=== PATIENT | female | born 1935 | race Caucasian/White ===

== ENCOUNTER → 2016-12-30 | Outpatient (CLI) | payer MEDICARE, BC ==
[~2016-12-30] MED LIST: ALPRAZOLAM0.25 M1 PO; AMOXICILLIN 50500 MG PO; ASPIR-LOX325 MG PO; ASPIRIN 32325 MG/TAB PO; ASPIRIN 81M81 MG/TA2 PO; ATIVAN0.5 MG PO; ATOXIMETIN-B1 CAP PO; BYSTOLIC10 MG PO; BYSTOLIC20 MG PO; CALCIUM1 CAP PO; CARDI-OMEGA1000 MG PO; CATAPRES 0.1MG0.1 MG PO; CATAPRES0.1 MG PO; CEPHALEXIN500 M1 PO; CITALOPRAM20 MG PO; GLUCOPHAGE500 MG/TAB PO; GLUCOSAMINE & C1 TER PO; HCTZ PO; K-DUR 1010 MEQ PO; KLOR-CON 1010 MEQ PO; LABETALOL100 MG PO; LEVSIN0.125 M1 PO; LOPRESSOR 550 MG/TAB PO; MAVIK2 MG PO; METOPROLOL TART50 MG PO; NEXIUM 40MG40 MG PO; NO HOME MEDICATIONS; POTASSIUM CL 220 MEQ PO; POTASSIUM1 PDS PO; PREMARIN .3MG0.3 MG PO; PRIL40 PO; PRILOSEC 20MG20 MG PO; REMERON15 MG PO; SINEMET 25/101 UDTAB PO; TOPROL XL50 MG PO; WELLBUTRIN SR150 M1 PO; WELLBUTRIN XL300 MG PO; ZOFRAN 4MG T4 MG/TAB PO
== END ==
LOC: COL.RAD 15:14
DX: R13.19 Other dysphagia (principal); R05 Cough
CPT/HCPCS: G8996-GN; G8997-GN; G8998-GN

== ENCOUNTER → 2017-02-01 | Outpatient (CLI) | payer MEDICARE, BC | LOC: COL.PUL 01-13 10:00 | DX: R05 Cough (principal); R06.02 Shortness of breath; Z77.22 Contact with and (suspected) exposure to environmental tobacco smoke (acute) (chronic) ==

== ENCOUNTER → 2017-06-03 | Outpatient (CLI) | payer MEDICARE, BC | LOC: COL.RAD 10:57 | DX: J98.11 Atelectasis (principal); J84.10 Pulmonary fibrosis, unspecified; M47.814 Spondylosis without myelopathy or radiculopathy, thoracic region; M40.204 Unspecified kyphosis, thoracic region; N28.1 Cyst of kidney, acquired; R91.8 Other nonspecific abnormal finding of lung field | CPT/HCPCS: Q9967 ==

== ENCOUNTER 2017-09-02 12:58 | Inpatient (IN) | payer MEDICARE, BC ==
[~2017-09-02] VITALS: Ht 167.6 cm; Wt 71.1 kg
[2017-09-02] VITALS (412 sets, daily range): BP systolic 163–199; BP diastolic 54–75; PULSE 50–89; TEMP 97.3–100.6; O2SAT 86–100
[2017-09-02] MEDS ORDERED: COZAAR 50MG50 MG/TAB PO (13:08)
[2017-09-02] MEDS ORDERED: LEXAPRO20 MG PO (13:08)
[2017-09-02 13:25] LABS: BASO # 0.1 (0.0-0.2); BASO % 0.7 % (0.0-2.0); EOS # 0.2 (0.0-0.7); EOS % 3.1 % (0-4.0); GRAN # 4.3 (1.4-6.5); GRAN % 60.5 % (42.2-75.2); HEMATOCRIT 42.6 % (37.0-47.0); HEMOGLOBIN 14.3 g/dl (12.5-16.0); LYMPH # 1.9 (1.2-3.4); LYMPH % 27.3 % (20.0-51.0); MEAN CELL VOLUME 92 fl (80.0-100.0); MEAN CORPUSCULAR HEMOGLOBIN 31 pg (27.0-31.0); MEAN CORPUSCULAR HGB CONC 34 g/dl (33.0-37.0); MEAN PLATELET VOLUME 8.9 fl (7.4-10.4); MONO # 0.6 (0.1-0.6); MONO % 8.1 % (1.7-9.3); PLATELET COUNT 200 K/mm3 (130-400); RED BLOOD COUNT 4.65 M/mm3 (4.10-5.30)
[2017-09-02 13:38] LABS: ADJUSTED CALCIUM 9.4 mg/dL (8.4-10.2); ALANINE AMINOTRANSFERASE 14 U/L (9-52); ALBUMIN 4.2 gm/dL (3.5-5.0); ALKALINE PHOSPHATASE 93 U/L (50-136); ANION GAP 10 mmol/L (7-16); BILIRUBIN,TOTAL 0.9 mg/dL (0.0-1.0); BLOOD UREA NITROGEN 23 mg/dL (7-17); CALCIUM 9.6 mg/dL (8.4-10.2); CARBON DIOXIDE 24 mmol/L (22-30); CHLORIDE 104 mmol/L (98-107); CREATININE, serum 0.96 mg/dL (0.52-1.25); GLUCOSE 109 mg/dL (74-106); POTASSIUM 4.1 mmol/L (3.4-5.0); SODIUM 138 mmol/L (137-145); TOTAL PROTEIN 7.2 gm/dL (6.4-8.2)
[2017-09-02] MEDS ORDERED: ATARAX 10MG10 MG/TAB PO (13:39)
[2017-09-02 13:45] LABS: C-REACTIVE PROTEIN < 0.5 mg/dL (0.0-0.9)
[2017-09-02 13:48] LABS: TROPONIN-I < 0.012 ng/mL (0.000-0.034)
[2017-09-02 14:29] LABS: COLLECTION METHOD CLEAN CATCH
[2017-09-02 14:38] LABS: PH 6 (5-8); SQUAMOUS EPITHELIAL 0-2 /hpf; URINE APPEARANCE Clear; URINE BACTERIA None Seen /hpf; URINE BILIRUBIN Negative (NEGATIVE); URINE BLOOD Negative (NEGATIVE); URINE COLOR Yellow; URINE GLUCOSE Negative (NEGATIVE); URINE KETONE Trace (NEGATIVE); URINE LEUKOCYTE ESTERASE Negative (NEGATIVE); URINE PROTEIN(semi-quant) Negative (NEGATIVE); URINE UROBILINOGEN Negative (NEGATIVE); URINE WBC 0-2 /hpf
[2017-09-03] VITALS (1241 sets, daily range): BP systolic 135–192; BP diastolic 58–75; PULSE 66–90; TEMP 97.1–98.2; O2SAT 72–98
[2017-09-04] VITALS (877 sets, daily range): BP systolic 149–206; BP diastolic 61–82; PULSE 66–109; TEMP 97.5–98.9; O2SAT 75–99
[2017-09-05] VITALS (1145 sets, daily range): BP systolic 101–213; BP diastolic 64–90; PULSE 88–118; TEMP 98.3–100.9; O2SAT 68–99
[2017-09-05 10:09] LABS: ADD PATHOLOGY DIFF REVIEW NO
[2017-09-05 10:15] LABS: HEMATOCRIT 39.8 % (37.0-47.0); HEMOGLOBIN 13.5 g/dl (12.5-16.0); MEAN CELL VOLUME 91 fl (80.0-100.0); MEAN CORPUSCULAR HEMOGLOBIN 31 pg (27.0-31.0); MEAN CORPUSCULAR HGB CONC 34 g/dl (33.0-37.0); MEAN PLATELET VOLUME 9.2 fl (7.4-10.4); PLATELET COUNT 182 K/mm3 (130-400); RED BLOOD COUNT 4.39 M/mm3 (4.10-5.30); WHITE BLOOD COUNT 13.1 K/mm3 (4.8-10.8)
[2017-09-05 10:23] LABS: ADJUSTED CALCIUM 8.6 mg/dL (8.4-10.2); ALBUMIN 3.9 gm/dL (3.5-5.0); CALCIUM 8.5 mg/dL (8.4-10.2); CREATININE, serum 0.79 mg/dL (0.52-1.25); MAGNESIUM 1.5 mg/dL (1.6-2.3); TOTAL PROTEIN 6.9 gm/dL (6.4-8.2)
[2017-09-05 10:25] LABS: POTASSIUM 2.9 mmol/L (3.4-5.0)
[2017-09-05 12:44] LABS: BAND 26 % (0-10); LYMPHOCYTE 5 % (20.0-51.0); NEUTROPHILS 68 % (42.0-75.2); PLATELET ESTIMATE NORMAL (NORMAL); TOTAL CELLS COUNTED 100
[2017-09-05 13:26] LABS: COLLECTION METHOD CLEAN CATCH
[2017-09-05 13:42] LABS: MUCOUS Present /lpf; PH 5 (5-8); SQUAMOUS EPITHELIAL 0-2 /hpf; URINE APPEARANCE Hazy; URINE BACTERIA Rare /hpf; URINE BILIRUBIN Negative (NEGATIVE); URINE BLOOD 3+ (NEGATIVE); URINE COLOR Yellow; URINE GLUCOSE 1+ (NEGATIVE); URINE KETONE 1+ (NEGATIVE); URINE LEUKOCYTE ESTERASE Negative (NEGATIVE); URINE PROTEIN(semi-quant) 3+ (NEGATIVE); URINE RBC >50 /hpf; URINE UROBILINOGEN Negative (NEGATIVE)
[2017-09-06] VITALS (1300 sets, daily range): BP systolic 147–174; BP diastolic 49–78; PULSE 86–91; TEMP 98.6–100; O2SAT 67–100
[2017-09-06 05:55] LABS: BASO % 0.2 % (0.0-2.0); GRAN # 14.8 (1.4-6.5); GRAN % 82.9 % (42.2-75.2); HEMOGLOBIN 12.9 g/dl (12.5-16.0); LYMPH # 1.5 (1.2-3.4); LYMPH % 8.2 % (20.0-51.0); MEAN CELL VOLUME 93 fl (80.0-100.0); MEAN CORPUSCULAR HEMOGLOBIN 31 pg (27.0-31.0); MEAN CORPUSCULAR HGB CONC 33 g/dl (33.0-37.0); MONO # 1.4 (0.1-0.6); MONO % 7.9 % (1.7-9.3); PLATELET COUNT 206 K/mm3 (130-400); WHITE BLOOD COUNT 17.9 K/mm3 (4.8-10.8)
[2017-09-06 06:07] LABS: ADJUSTED CALCIUM 8.2 mg/dL (8.4-10.2); ALBUMIN 3.5 gm/dL (3.5-5.0); BILIRUBIN,TOTAL 0.8 mg/dL (0.0-1.0); CALCIUM 7.8 mg/dL (8.4-10.2); CREATININE, serum 0.9 mg/dL (0.52-1.25); POTASSIUM 4.3 mmol/L (3.4-5.0); TOTAL PROTEIN 6.5 gm/dL (6.4-8.2)
[2017-09-07] VITALS (913 sets, daily range): BP systolic 170–183; BP diastolic 69–92; PULSE 80–92; TEMP 98–99.8; O2SAT 63–100
[2017-09-07 05:37] LABS: BASO % 0.2 % (0.0-2.0); EOS % 0.1 % (0-4.0); GRAN # 11.9 (1.4-6.5); GRAN % 81.5 % (42.2-75.2); HEMATOCRIT 37.2 % (37.0-47.0); HEMOGLOBIN 12.5 g/dl (12.5-16.0); LYMPH # 1.3 (1.2-3.4); LYMPH % 9.2 % (20.0-51.0); MEAN CELL VOLUME 91 fl (80.0-100.0); MEAN CORPUSCULAR HEMOGLOBIN 31 pg (27.0-31.0); MEAN CORPUSCULAR HGB CONC 34 g/dl (33.0-37.0); MEAN PLATELET VOLUME 9.3 fl (7.4-10.4); MONO # 1.1 (0.1-0.6); MONO % 7.8 % (1.7-9.3); PLATELET COUNT 210 K/mm3 (130-400); RED BLOOD COUNT 4.08 M/mm3 (4.10-5.30); WHITE BLOOD COUNT 14.6 K/mm3 (4.8-10.8)
[2017-09-07 05:44] LABS: CALCIUM 7.6 mg/dL (8.4-10.2); CREATININE, serum 0.84 mg/dL (0.52-1.25); MAGNESIUM 2.4 mg/dL (1.6-2.3); PHOSPHOROUS 2.1 mg/dL (2.5-4.5); POTASSIUM 3.4 mmol/L (3.4-5.0)
[2017-09-08] VITALS (7 sets, daily range): BP systolic 153–185; BP diastolic 56–84; PULSE 80–86; TEMP 97.6–99.1
[2017-09-08 07:25] LABS: BASO % 0.1 % (0.0-2.0); EOS % 0.2 % (0-4.0); GRAN # 8.5 (1.4-6.5); HEMATOCRIT 38.1 % (37.0-47.0); HEMOGLOBIN 13.1 g/dl (12.5-16.0); LYMPH # 1.3 (1.2-3.4); LYMPH % 11.7 % (20.0-51.0); MEAN CELL VOLUME 90 fl (80.0-100.0); MEAN CORPUSCULAR HEMOGLOBIN 31 pg (27.0-31.0); MEAN CORPUSCULAR HGB CONC 34 g/dl (33.0-37.0); MEAN PLATELET VOLUME 9.3 fl (7.4-10.4); MONO # 1.1 (0.1-0.6); MONO % 9.9 % (1.7-9.3); PLATELET COUNT 223 K/mm3 (130-400); RED BLOOD COUNT 4.22 M/mm3 (4.10-5.30)
[2017-09-08 07:38] LABS: CALCIUM 7.5 mg/dL (8.4-10.2); CREATININE, serum 0.8 mg/dL (0.52-1.25); MAGNESIUM 2.1 mg/dL (1.6-2.3); PHOSPHOROUS 2.3 mg/dL (2.5-4.5)
[2017-09-08 07:48] LABS: POTASSIUM 2.7 mmol/L (3.4-5.0)
[2017-09-09] MEDS ORDERED: PROTONIX 40MG T40 MG PO (02:20)
[2017-09-09] MEDS ORDERED: COZAAR100 MG PO (02:22)
[2017-09-09] MEDS ORDERED: LIPITOR 80MG80 MG PO (02:25)
[2017-09-09] MEDS ORDERED: KLOR-CON/EF25 MEQ PO (02:25)
[2017-09-09] MEDS ORDERED: NORVASC 10MG10 MG PO (02:26)
[2017-09-09] MEDS ORDERED: MELAT3MGTAB PO (02:27)
[2017-09-09] MEDS ORDERED: PLAVIX 75MG TAB75 MG PO (02:27)
[2017-09-09] MEDS ORDERED: PRIL40 PO (02:29)
== END 2017-09-08 16:00 | DRG 65 ==
LOC: COL.ER 12:58 → ICU 15:15 → MEDICAL 09-04 16:17 → ICU 09-05 01:27 → MEDICAL 09-07 18:45
PROVIDERS: Emergency Medicine; Internal Medicine
DX: I63.9 Cerebral infarction, unspecified (principal); G81.91 Hemiplegia, unspecified affecting right dominant side; E87.2 Acidosis; I16.0 Hypertensive urgency; R47.81 Slurred speech; I10 Essential (primary) hypertension; G20 Parkinson's disease; E83.39 Other disorders of phosphorus metabolism
CPT/HCPCS: 99232-AI; 99233-AI; 99239; A4314; A9284; A9585; C9113; J0360; J1650; J1940; J1956; J2405; J2550; J3475; J3480; J7030; J7040; J7050

== ENCOUNTER 2017-09-08 13:23 | Inpatient (IN) | payer MEDICARE, BC ==
[~2017-09-08] VITALS: Ht 165.1 cm; Wt 69.5 kg
[~2017-09-08 13:23] MED LIST changes: +ATARAX 10MG10 MG/TAB PO; +COZAAR 50MG50 MG/TAB PO; +LEXAPRO20 MG PO
[2017-09-08 16:33] VITALS: BP 148/78; BP 148/96; BP 174/98; PULSE 80; PULSE 93; TEMP 100.6; TEMP 98.2
[2017-09-08 18:00] VITALS: BP 148/78; PULSE 80; TEMP 98.2
[2017-09-09] MEDS ORDERED: PROTONIX 40MG T40 MG PO (02:20)
[2017-09-09] MEDS ORDERED: COZAAR100 MG PO (02:22)
[2017-09-09] MEDS ORDERED: KLOR-CON/EF25 MEQ PO (02:25)
[2017-09-09] MEDS ORDERED: LIPITOR 80MG80 MG PO (02:25)
[2017-09-09] MEDS ORDERED: NORVASC 10MG10 MG PO (02:26)
[2017-09-09] MEDS ORDERED: PLAVIX 75MG TAB75 MG PO (02:27)
[2017-09-09] MEDS ORDERED: MELAT3MGTAB PO (02:27)
[2017-09-09] MEDS ORDERED: PRIL40 PO (02:29)
[2017-09-09 04:43] VITALS: BP 160/66; PULSE 68; TEMP 97.7
[2017-09-09 17:06] VITALS: BP 119/46; PULSE 48; TEMP 98.5
[2017-09-10 05:52] VITALS: BP 133/46; PULSE 51; TEMP 97.2
[2017-09-10 08:48] LABS: BASO % 0.1 % (0.0-2.0); EOS # 0.3 (0.0-0.7); EOS % 3.9 % (0-4.0); GRAN # 5.2 (1.4-6.5); GRAN % 73.2 % (42.2-75.2); LYMPH % 13.3 % (20.0-51.0); MEAN CELL VOLUME 94 fl (80.0-100.0); MEAN CORPUSCULAR HGB CONC 33 g/dl (33.0-37.0); MEAN PLATELET VOLUME 9.6 fl (7.4-10.4); MONO # 0.6 (0.1-0.6); MONO % 8.8 % (1.7-9.3); PLATELET COUNT 208 K/mm3 (130-400); RED BLOOD COUNT 3.49 M/mm3 (4.10-5.30); REDCELL DISTRIBUTION WIDTH-CV 14.4 % (11.5-14.5)
[2017-09-10 08:49] LABS: HEMATOCRIT 32.9 % (37.0-47.0); HEMOGLOBIN 10.8 g/dl (12.5-16.0); MEAN CORPUSCULAR HEMOGLOBIN 31 pg (27.0-31.0)
[2017-09-10 09:18] LABS: CALCIUM 7.5 mg/dL (8.4-10.2); CREATININE, serum 1.01 mg/dL (0.52-1.25); MAGNESIUM 2.3 mg/dL (1.6-2.3); POTASSIUM 3.7 mmol/L (3.4-5.0)
[2017-09-10 09:52] VITALS: PULSE 64
[2017-09-10 15:52] VITALS: BP 164/59; PULSE 63; TEMP 98.1
[2017-09-10 21:20] VITALS: BP 130/52; PULSE 51; TEMP 99.6
[2017-09-11 06:23] VITALS: BP 145/47; PULSE 53; TEMP 97.8
[2017-09-11 17:35] VITALS: BP 130/47; PULSE 55; TEMP 98.7
[2017-09-12] VITALS (872 sets, daily range): BP systolic 174; BP diastolic 79; PULSE 94; TEMP 101.6; O2SAT 83–100
[2017-09-12 02:51] LABS: ARTERIAL BLD GAS O2 SATURATION 73.2 % (92-100); ARTERIAL BLD GAS TCO2 CT 20.7; ARTERIAL BLOOD GAS BASE EXCESS -7.9 (-2-2); ARTERIAL BLOOD GAS HCO3 19.3 meq/L (22-26); ARTERIAL BLOOD GAS PCO2 45.6 mmHg (35-45); ARTERIAL BLOOD GAS pH 7.24 (7.35-7.45)
[2017-09-12 02:52] LABS: ARTERIAL BLOOD GAS PO2 47.5 mmHg (80-100)
[2017-09-12 03:07] LABS: CALCIUM 8.8 mg/dL (8.4-10.2); CREATININE, serum 0.97 mg/dL (0.52-1.25); POTASSIUM 3.8 mmol/L (3.4-5.0)
[2017-09-12 03:21] LABS: HEMATOCRIT 43.5 % (37.0-47.0); MEAN CELL VOLUME 95 fl (80.0-100.0); MEAN CORPUSCULAR HEMOGLOBIN 31 pg (27.0-31.0); MEAN CORPUSCULAR HGB CONC 33 g/dl (33.0-37.0); MEAN PLATELET VOLUME 9.7 fl (7.4-10.4); PLATELET COUNT 240 K/mm3 (130-400); REDCELL DISTRIBUTION WIDTH-CV 13.9 % (11.5-14.5)
[2017-09-12 03:23] LABS: HEMOGLOBIN 14.2 g/dl (12.5-16.0)
[2017-09-12 03:26] LABS: ALBUMIN 3.9 gm/dL (3.5-5.0); BILIRUBIN,TOTAL 0.8 mg/dL (0.0-1.0); CALCIUM 8.8 mg/dL (8.4-10.2); CREATININE, serum 1.01 mg/dL (0.52-1.25); POTASSIUM 3.8 mmol/L (3.4-5.0); TOTAL PROTEIN 7.1 gm/dL (6.4-8.2)
[2017-09-12 03:38] LABS: TROPONIN-I 0.029 ng/mL (0.000-0.034)
[2017-09-12] MEDS ORDERED: CATAPRES0.2 MG PO (15:58)
[2017-09-12] MEDS ORDERED: FOSAMAX 70MG TA70 MG PO (16:06)
[2017-09-13] VITALS (916 sets, daily range): O2SAT 87–100
== END 2017-09-12 04:00 | DRG 56 ==
LOC: ICU 09-12 03:20
PROVIDERS: Internal Medicine
DX: I69.351 Hemiplegia and hemiparesis following cerebral infarction affecting right dominant side (principal); J96.01 Acute respiratory failure with hypoxia; J96.02 Acute respiratory failure with hypercapnia; E87.1 Hypo-osmolality and hyponatremia; E87.2 Acidosis; I69.321 Dysphasia following cerebral infarction; I10 Essential (primary) hypertension; E87.6 Hypokalemia; E83.39 Other disorders of phosphorus metabolism; G20 Parkinson's disease; I16.0 Hypertensive urgency
CPT/HCPCS: 99222-AI; 99233-AI; J0360; J1650; J1956; J2543; J3370; J7050; Q9967

== ENCOUNTER 2017-09-12 07:44 | Inpatient (IN) | payer MEDICARE, BC ==
[~2017-09-12] VITALS: Ht 167.6 cm; Wt 67.0 kg
[~2017-09-12 07:44] MED LIST changes: +COZAAR100 MG PO; +KLOR-CON/EF25 MEQ PO; +LIPITOR 80MG80 MG PO; +MELAT3MGTAB PO; +NORVASC 10MG10 MG PO; +PLAVIX 75MG TAB75 MG PO; +PROTONIX 40MG T40 MG PO
[2017-09-12 08:00] VITALS: BP 132/73; PULSE 76; TEMP 101.5
[2017-09-12 10:30] LABS: ARTERIAL BLD GAS O2 SATURATION 97.3 % (92-100); ARTERIAL BLD GAS TCO2 CT 24.6; ARTERIAL BLOOD GAS BASE EXCESS 2.1 (-2-2); ARTERIAL BLOOD GAS HCO3 23.7 meq/L (22-26); ARTERIAL BLOOD GAS PCO2 28.6 mmHg (35-45); ARTERIAL BLOOD GAS PO2 90.5 mmHg (80-100); ARTERIAL BLOOD GAS pH 7.54 (7.35-7.45)
[2017-09-12 11:37] VITALS: BP 132/73; PULSE 76; TEMP 101.5
[2017-09-12 12:00] VITALS: BP 126/53; PULSE 71; TEMP 100.4
[2017-09-12] MEDS ORDERED: CATAPRES0.2 MG PO (15:58)
[2017-09-12 16:00] VITALS: BP 126/54; PULSE 62; TEMP 99.3
[2017-09-12] MEDS ORDERED: FOSAMAX 70MG TA70 MG PO (16:06)
[2017-09-12 18:40] LABS: CREATININE, serum 1.27 mg/dL (0.52-1.25)
[2017-09-12 18:58] LABS: TROPONIN-I 0.405 ng/mL (0.000-0.034)
[2017-09-12 19:15] LABS: ARTERIAL BLD GAS O2 SATURATION 94.5 % (92-100); ARTERIAL BLD GAS TCO2 CT 26.4; ARTERIAL BLOOD GAS BASE EXCESS 3.9 (-2-2); ARTERIAL BLOOD GAS HCO3 25.5 meq/L (22-26); ARTERIAL BLOOD GAS PCO2 29.3 mmHg (35-45); ARTERIAL BLOOD GAS PO2 68.2 mmHg (80-100); ARTERIAL BLOOD GAS pH 7.56 (7.35-7.45)
[2017-09-12 20:00] VITALS: BP 121/57; PULSE 65; TEMP 98
[2017-09-12 22:03] VITALS: BP 121/57; PULSE 66; TEMP 98
[2017-09-13 04:24] VITALS: BP 104/48; PULSE 52; TEMP 98.5
[2017-09-13 06:23] LABS: CALCIUM 7.6 mg/dL (8.4-10.2); CREATININE, serum 1.37 mg/dL (0.52-1.25); MAGNESIUM 1.5 mg/dL (1.6-2.3); PHOSPHOROUS 4.7 mg/dL (2.5-4.5); POTASSIUM 3.7 mmol/L (3.4-5.0)
[2017-09-13 07:36] LABS: COLLECTION METHOD CATHETER
[2017-09-13 08:00] VITALS: BP 139/63; PULSE 65; TEMP 98.5
[2017-09-13 08:22] LABS: MUCOUS Present /lpf; PH 5 (5-8); SQUAMOUS EPITHELIAL 0-2 /hpf; URINE APPEARANCE Cloudy; URINE BACTERIA Rare /hpf; URINE BILIRUBIN Negative (NEGATIVE); URINE BLOOD 3+ (NEGATIVE); URINE COLOR Yellow; URINE GLUCOSE Negative (NEGATIVE); URINE KETONE Negative (NEGATIVE); URINE LEUKOCYTE ESTERASE Negative (NEGATIVE); URINE NITRATE Negative (NEGATIVE); URINE PROTEIN(semi-quant) 1+ (NEGATIVE); URINE RBC >50 /hpf; URINE UROBILINOGEN Negative (NEGATIVE)
[2017-09-13 12:00] VITALS: BP 144/54; PULSE 72; TEMP 97.8
[2017-09-15] MEDS ORDERED: TRANSDERM-0.5 MG/21 TD (15:08)
[2017-09-15] MEDS ORDERED: ATIVAN 0.50.5 MG/TAB PO (15:09)
[2017-09-15] MEDS ORDERED: ROXANOL 20MG20 MG/ML PO (15:09)
[2017-09-15 15:53] VITALS: BP 144/54; PULSE 72; TEMP 97.8
== END 2017-09-15 15:55 | disposition hospice, inpatient (51) | DRG 280 ==
LOC: ICU 07:44 → SURG 07:44 → ICU 08:03 → SURG 09-13 21:54
PROVIDERS: Internal Medicine
DX: I11.0 Hypertensive heart disease with heart failure (principal); I63.9 Cerebral infarction, unspecified; I21.4 Non-ST elevation (NSTEMI) myocardial infarction; J96.01 Acute respiratory failure with hypoxia; J96.02 Acute respiratory failure with hypercapnia; G81.91 Hemiplegia, unspecified affecting right dominant side; I50.33 Acute on chronic diastolic (congestive) heart failure; Z51.5 Encounter for palliative care; Z66 Do not resuscitate; G20 Parkinson's disease; I16.0 Hypertensive urgency
CPT/HCPCS: 99223; 99232-AI; 99233-AI; 99239; J1650; J1940; J1956; J2060; J2270; J2543; J3370; J3475; J3480; J7050